=== PATIENT | female | born 1985 | race Caucasian/White ===

== ENCOUNTER 2016-11-15 09:34 | Emergency (ER) | payer OTHER ==
[2016-11-15 09:52] VITALS: RESP 18; O2SAT 100
[2016-11-15 10:31] LABS: RBC URINE 11 /hpf (0-3); URINE BACTERIA OCC (<OCC); URINE BILIRUBIN NEGATIVE (NEGATIVE); URINE BLOOD 2+ (NEGATIVE); URINE COLOR Yellow (YELLOW); URINE GLUCOSE (UA) NORMAL (Normal); URINE KETONE NEGATIVE (NEGATIVE); URINE LEUKOCYTE ESTERASE 1+ Leu/uL (Negative); URINE PROTEIN NEGATIVE (NEGATIVE); URINE UROBILINOGEN NORMAL mg/dL (0.2-1.0); WBC URINE 8 /hpf (0-5)
--- NOTE | 2016-11-15 10:31 | C.PDOC ---
History Of Present Illness The patient, a 30y/o female who is currently around 6 weeks , presents to the ED for evaluation of her . Patient states she was evaluated by her SURVEY INTERVIEWER, Dr. Harry, 2 days ago and underwent a repeat US which did not show evidence of a . Prior to that visit, patient underwent an US that showed a heartbeat. Patient states her doctor advised her to undergo a D& C procedure, but she presents to the ED for a second opinion. Patient denies fever, chills, abdominal pain, nausea, vomiting, or vaginal bleeding. Time Seen by Provider: 11/15/16 09:58 Chief Complaint (Nursing): Abdominal Pain History Per: Patient History/Exam Limitations: no limitations Current Symptoms Are (Timing): Still Present Radiation Of Pain To:: None Quality Of Discomfort: denies: "Pain" Associated Symptoms: denies: Fever, Chills, Nausea, Vomiting Additional History Per: Patient Abnormal Vaginal Bleeding: No Past Medical History Reviewed: Historical Data, Nursing Documentation, Vital Signs Vital Signs: Last Vital Signs Temp 98.6 F 11/15/16 11:54 Pulse 79 11/15/16 11:54 Resp 18 11/15/16 11:54 BP 115/72 11/15/16 11:54 Pulse Ox 100 11/15/16 12:22 - Medical History PMH: No Chronic Diseases Surgical History: No Surg Hx Family History: States: Unknown Family Hx - Social History Hx Alcohol Use: No Hx Substance Use: No - Immunization History Hx Tetanus Toxoid Vaccination: No Hx Influenza Vaccination: No Hx Pneumococcal Vaccination: No Review Of Systems Except As Marked, All Systems Reviewed And Found Negative. Constitutional: Negative for: Fever, Chills Gastrointestinal: Negative for: Nausea, Vomiting, Abdominal Pain Genitourinary: Positive for: Other (+evaluation of ). Negative for: Vaginal Bleeding Physical Exam - Physical Exam Appears: Non-toxic, No Acute Distress Skin: Normal Color, Warm, Dry Eye(s): bilateral: Normal Inspection, EOMI Nose: Normal Throat: Normal Neck: Supple Cardiovascular: Rhythm Regular Respiratory: Normal Breath Sounds Gastrointestinal/Abdominal: Soft, No Tenderness, No Guarding, No Rebound Back: Normal Inspection, No Vertebral Tenderness, No Paraspinal Tenderness Extremity: Normal ROM, Capillary Refill (less than 2 seconds) Neurological/Psych: Oriented x3, Normal Speech Gait: Steady ED Course And Treatment - Laboratory Results Result Diagrams: 11/15/16 10:43 11/15/16 10:43 Lab Interpretation: Normal Urine POC: Positive O2 Sat by Pulse Oximetry: 100 (on RA) Pulse Ox Interpretation: Normal - CT Scan/US Ultrasound Other Rad Studies (CT/US): Read By Radiologist, Radiology Report Reviewed CT/US Interpretation: Accession No. : [id number]. Patient Name / ID : CLAUDETTE GAFFNEY / [id number]. Exam Date : 11/15/2016 10:48:43 ( Approved ). Study Comment : Sex / Age : F / 30Y. Creator : Brenda Hollingsworth MD. Dictator : Brenda Hollingsworth MD. Word Processing Operator : Paperhanger : Brenda Hollingsworth MD. Approver2 : Report Date : 11/15/2016 11:54:43. My Comment : . Indication: Bleeding. Comparison: None available. Technique: Real-time transabdominal pelvic ultrasound was performed. In addition a transvaginal pelvic ultrasound was necessary to better depict pelvic anatomy. Findings: The uterus measures approximately 9.8 x 5.6 x 6.8 cm. Anteverted. Cervix length measures approximately 3.4 cm. There is a single intrauterine fetus present. The irregular-appearing gestational sac measures 3.2 cm and is compatible with a gestational age of 8 weeks 1 day. The crown-rump length measures 0.3 cm and is compatible with a gestational age of 6 weeks 0 days. There is heart motion is not detected. The right ovary measures 0.2 x 2.6 x 3.7 cm. 6.4 x 4.8 x 5.5 cm right ovarian cyst. The left ovary measures 3.1 x 1.8 x 2.6 cm. 1.6 x 1.2 x 1.5 cm left ovarian cyst. Blood flow was demonstrated to both ovaries. Small pelvic free fluid. Small fluid noted within the cervix. Impression: Single intrauterine with estimated gestational age 8 weeks 1 day by gestational sac calculation and 6 weeks 0 days by crown-rump length calculation. Gestational sac demonstrates irregular contour. heart rate was not detected during the study. Recommend WOOD GANG SAWYER consultation and close follow-up as indicated. Small pelvic free fluid. Small fluid noted within the cervix. 6.4 cm right ovarian cyst. 1.6 cm left ovarian cyst. Recommend 6 week follow-up ultrasound. Progress Note: labs and US ordered and reviewed. On re-evaluation abdomen soft non-tender. Patient was evaluated by her YARD MANAGER but wanted a second opinion Reassessment Condition: Unchanged Disposition Counseled Patient/Family Regarding: Studies Performed, Diagnosis, Need For Followup - Disposition Disposition: HOSPITALIZED Disposition Time: 12:30 Condition: STABLE Additional Instructions: Follow up with PMD and OB for further evaluation Return to ED if any increase symptoms Instructions: Threatened Miscarriage (ED) - POA Present On Arrival: None - Clinical Impression Clinical Impression: Miscarriage - PA / SPA ATTENDANT / Resident Statement MD/DO has reviewed & agrees with the documentation as recorded. - Scribe Statement The provider has reviewed the documentation as recorded by the Scribe (Violetta Gu) All medical record entries made by the Scribe were at my direction and personally dictated by me. I have reviewed the chart and agree that the record accurately reflects my personal performance of the history, physical exam, medical decision making, and the department course for this patient. I have also personally directed, reviewed, and agree with the discharge instructions and disposition.
[2016-11-15 10:50] LABS: BASO % 0.3 % (0.0-2.0); EOS % 0.5 % (0.0-4.0); HEMATOCRIT 37.3 % (34.0-47.0); LYMPH # 1.5 K/uL (1.0-4.3); MEAN CELL VOLUME 77.1 fL (81.0-99.0); MEAN CORPUSCULAR HEMOGLOBIN 24.7 pg (27.0-31.0); MEAN PLATELET VOLUME 8.8 fL (7.2-11.7); MONO # 0.5 K/uL (0.0-0.8); NRBC % 0.1 % (0.0-2.0); RED CELL DISTRIBUTION WIDTH 14.9 % (11.5-14.5); WHITE BLOOD COUNT 5.9 K/uL (4.8-10.8)
[2016-11-15 11:06] LABS: CHLORIDE 101 mmol/L (98-107)
[2016-11-15 11:07] LABS: SODIUM 135 mmol/L (132-148)
[2016-11-15 11:09] LABS: ALB/GLOB RATIO 1.1 (1.0-2.1); ALKALINE PHOSPHATASE 56 U/L (38-126); ALT/SGPT 87 U/L (9-52); AST/SGOT 40 U/L (14-36); BILIRUBIN,TOTAL 0.5 mg/dL (0.2-1.3); BLOOD UREA NITROGEN 11 mg/dL (7-17); CARBON DIOXIDE 23 mmol/L (22-30); GFR AFRICAN-AMERICAN > 60; GLUCOSE,RANDOM 89 mg/dL (65-105)
[2016-11-15 11:10] LABS: CALCIUM 8.5 mg/dl (8.6-10.4)
--- NOTE | 2016-11-15 11:56 | US ---
Indication: Bleeding Comparison: None available Technique: Real-time transabdominal pelvic ultrasound was performed. In addition a transvaginal pelvic ultrasound was necessary to better depict pelvic anatomy Findings: The uterus measures approximately 9.8 x 5.6 x 6.8 cm. Anteverted. Cervix length measures approximately 3.4 cm. There is a single intrauterine fetus present. The irregular-appearing gestational sac measures 3.2 cm and is compatible with a gestational age of 8 weeks 1 day. The crown-rump length measures 0.3 cm and is compatible with a gestational age of 6 weeks 0 days. There is heart motion is not detected. The right ovary measures 0.2 x 2.6 x 3.7 cm. 6.4 x 4.8 x 5.5 cm right ovarian cyst. The left ovary measures 3.1 x 1.8 x 2.6 cm. 1.6 x 1.2 x 1.5 cm left ovarian cyst. Blood flow was demonstrated to both ovaries. Small pelvic free fluid. Small fluid noted within the cervix. Impression: Single intrauterine with estimated gestational age 8 weeks 1 day by gestational sac calculation and 6 weeks 0 days by crown-rump length calculation. Gestational sac demonstrates irregular contour. heart rate was not detected during the study. Recommend BUSINESS REPORTER consultation and close follow-up as indicated. Small pelvic free fluid. Small fluid noted within the cervix. 6.4 cm right ovarian cyst. 1.6 cm left ovarian cyst. Recommend 6 week follow-up ultrasound.
[2016-11-15 11:59] VITALS: BP 115/72; PULSE 79; TEMP 98.6
== END 2016-11-15 12:25 | disposition short-term general hospital (02) ==
LOC: C.ER 09:34
DX: O03.9 Complete or unspecified spontaneous abortion without complication (principal)

== ENCOUNTER 2016-11-16 09:16 | Day surgery (SDC) | payer OTHER ==
--- NOTE | 2016-11-16 09:53 | C.PDOC ---
History Of Present Illness 30 y/o female complains of lower abdominal cramping and vaginal bleeding since this morning. Pt was seen in ED yesterday, told she was having a miscarriage. Pt has not followed up with OB. Denies fever, chills, or any other complaints. Time Seen by Provider: 11/16/16 09:39 Chief Complaint (Nursing): Female Genitourinary History Per: Patient History/Exam Limitations: no limitations Onset/Duration Of Symptoms: Hrs Current Symptoms Are (Timing): Still Present Severity: Mild Quality Of Discomfort: Cramping Associated Symptoms: denies: Fever, Chills Alleviating Factors: None Recent travel outside of the [place]: No Abnormal Vaginal Bleeding: Yes Past Medical History Reviewed: Historical Data, Nursing Documentation, Vital Signs Vital Signs: Last Vital Signs Temp 98.8 F 11/16/16 11:44 Pulse 95 H 11/16/16 11:44 Resp 16 11/16/16 11:44 BP 118/76 11/16/16 11:44 Pulse Ox 99 11/16/16 11:44 - Medical History PMH: No Chronic Diseases Surgical History: No Surg Hx Family History: States: Unknown Family Hx - Social History Hx Alcohol Use: No Hx Substance Use: No - Immunization History Hx Tetanus Toxoid Vaccination: No Hx Influenza Vaccination: No Hx Pneumococcal Vaccination: No Review Of Systems Except As Marked, All Systems Reviewed And Found Negative. Constitutional: Negative for: Fever, Chills Gastrointestinal: Positive for: Abdominal Pain Genitourinary: Positive for: Vaginal Bleeding Physical Exam - Physical Exam Appears: Non-toxic, No Acute Distress Skin: Warm, Dry, No Rash Head: Atraumatic, Normacephalic Eye(s): bilateral: Normal Inspection Neck: Normal ROM Chest: Symmetrical Cardiovascular: Rhythm Regular, No Murmur Respiratory: Normal Breath Sounds, No Rales, No Rhonchi, No Wheezing Gastrointestinal/Abdominal: Soft, Tenderness (mild suprapubic), No Guarding, No Rebound Extremity: Bilateral: Atraumatic, Normal Color And Temperature, Normal ROM Neurological/Psych: Oriented x3, Normal Speech ED Course And Treatment - Laboratory Results Result Diagrams: 11/16/16 11:12 11/16/16 11:12 Lab Interpretation: No Acute Changes O2 Sat by Pulse Oximetry: 99 (on room air) Pulse Ox Interpretation: Normal Medical Decision Making Medical Decision Making: OB to evaluate patient in ED. 1056: Dr Browne accepts patient onto service and to prep for OR for D&C Disposition Discussed With .: Richie Browne Comment: 10:00 Dr Browne she will come to ED to evaluate patient Doctor Will See Patient In The: ED - Disposition Disposition: HOSPITALIZED Disposition Time: 10:55 Condition: STABLE - POA Present On Arrival: None - Clinical Impression Clinical Impression: - PA / IMAGERY ANALYST / Resident Statement MD/DO has reviewed & agrees with the documentation as recorded. - Scribe Statement The provider has reviewed the documentation as recorded by the Scribe Cedrick Nance All medical record entries made by the Sam were at my direction and personally dictated by me. I have reviewed the chart and agree that the record accurately reflects my personal performance of the history, physical exam, medical decision making, and the department course for this patient. I have also personally directed, reviewed, and agree with the discharge instructions and disposition. Decision To Admit - Pt Status Changed To: Hospital Disposition Of: Observation - . Bed Request Type: Regular Admitting Physician: Richie Browne Patient Diagnosis:
[2016-11-16] MEDS ORDERED: Sodium Chloride 0.9% 1,000 ML IV ONE (10:54)
--- NOTE | 2016-11-16 11:03 | CP.PCM.HP ---
History of Present Illness - History of Present Illness History of Present Illness: 30 y/o with LMP 08/10/2016 , Presents to ed with c/o vaginal bleeding.patient was seen yesterday in er and diagnosed with missed .Patient wa advised o follow up with obgyn -dr limon but patient does not want to follow up with him.Patient states that when she was 6 weeks she had an ultrasound done which showed viable iup.Repeat scan done at 13 weeks showed missed aborton.Patient states that she was advised to have a D& C done but she came to er yesterday for another opinion.It was confirmed in the er yesterday that she has a missed .Patient came in today because she started bleeding. Present on Admission - Present on Admission Any Indicators Present on Admission: No Review of Systems - Review of Systems All systems: reviewed and no additional remarkable complaints except - Reproductive: Female Reproductive:Female: Amenorrhea, Abnormal Vaginal Bleeding Past Patient History - Infectious Disease Hx of Infectious Diseases: None - Past Social History Smoking Status: Never Smoked - CARDIAC Hx Cardiac Disorders: No - PULMONARY Hx Respiratory Disorders: No - NEUROLOGICAL Hx Neurological Disorder: No - HEENT Hx HEENT Problems: No - RENAL Hx Chronic Kidney Disease: No - ENDOCRINE/METABOLIC Hx Endocrine Disorders: No - HEMATOLOGICAL/ONCOLOGICAL Hx Blood Disorders: No - INTEGUMENTARY Hx Dermatological Problems: No - MUSCULOSKELETAL/RHEUMATOLOGICAL Hx Musculoskeletal Disorders: No - GASTROINTESTINAL Hx Gastrointestinal Disorders: No - GENITOURINARY/GYNECOLOGICAL Hx Reproductive Disorders: No Hx Sexually Transmitted Disorders: No - PSYCHIATRIC Hx Anxiety: No Hx Depression: No Hx Substance Use: No - SURGICAL HISTORY Hx Surgeries: No - ANESTHESIA Hx Anesthesia: No Meds Allergies/Adverse Reactions: Allergies Allergy/AdvReac Type Severity Reaction Status Date / Time No Known Allergies Allergy Verified 11/16/16 09:40 Physical Exam - Constitutional Appears: No Acute Distress - Respiratory Exam Respiratory Exam: NORMAL BREATHING PATTERN - Cardiovascular Exam Cardiovascular Exam: REGULAR RHYTHM - GI/Abdominal Exam GI & Abdominal Exam: Normal Bowel Sounds, Soft. absent: Guarding, Rebound, Tenderness - Exam External exam: NORMAL EXTERNAL EXAM Speculum exam: Vaginal Bleeding Bimanual exam: Uterine Enlargement - Extremities Exam Extremities exam: Negative for: calf tenderness - Back Exam Back exam: absent: CVA tenderness (L), CVA tenderness (R) - Neurological Exam Neurological exam: Alert, Oriented x3 - Psychiatric Exam Psychiatric exam: Normal Affect, Normal Mood - Skin Skin Exam: Normal Color Results - Vital Signs Recent Vital Signs: Last Vital Signs Temp 98.2 F 11/16/16 09:28 Pulse 102 H 11/16/16 09:28 Resp 17 11/16/16 09:28 BP 119/78 11/16/16 09:28 Pulse Ox 99 11/16/16 10:57 Assessment & Plan (1) Miscarriage Status: Acute - Assessment and Plan (Free Text) Assessment: Patient with miscarriage. 14 weeks gestation by lmp .crl 6 weeks gestation by ultrasound yesterday with no heart beat.Started bleeding today.Incomplete .Discussed management options with patient-medical versus surgical.Risks and benefits of each discussed.Patient chooses to have suction D& C Decision To Admit - Pt Status Changed To: Hospital Disposition Of: SDS- Endo,OR,Cath,IR - . Bed Request Type: Same Day Surgery
[2016-11-16] MEDS ORDERED: Sodium Chloride 0.9% 1,000 ML ONE (11:09)
[2016-11-16 11:17] LABS: BASO % 0.1 % (0.0-2.0); EOS % 0.3 % (0.0-4.0); HEMATOCRIT 39.7 % (34.0-47.0); LYMPH # 1.6 K/uL (1.0-4.3); LYMPH % 22.2 % (20.0-40.0); MEAN CELL VOLUME 77.1 fL (81.0-99.0); MEAN CORPUSCULAR HEMOGLOBIN 24.8 pg (27.0-31.0); MEAN CORPUSCULAR HGB CONC 32.1 g/dL (33.0-37.0); MONO # 0.5 K/uL (0.0-0.8); MONO % 6.8 % (0.0-10.0); WHITE BLOOD COUNT 7.3 K/uL (4.8-10.8)
[2016-11-16 11:22] LABS: INR 1.1
[2016-11-16 11:24] LABS: CHLORIDE 100 mmol/L (98-107)
[2016-11-16 11:25] LABS: POTASSIUM 4.1 mmol/L (3.6-5.2); SODIUM 136 mmol/L (132-148)
[2016-11-16 11:27] LABS: ALKALINE PHOSPHATASE 61 U/L (38-126); ALT/SGPT 82 U/L (9-52); AST/SGOT 44 U/L (14-36); BILIRUBIN,TOTAL 0.7 mg/dL (0.2-1.3); BLOOD UREA NITROGEN 12 mg/dL (7-17); CARBON DIOXIDE 24 mmol/L (22-30); GFR AFRICAN-AMERICAN > 60; GLUCOSE,RANDOM 85 mg/dL (65-105); TOTAL PROTEIN 7.8 g/dL (6.3-8.3)
[2016-11-16] MEDS ORDERED: Propofol 10 mg/ml Inj (20 ML) ONE ×2 (12:00→12:38)
[2016-11-16] MEDS ORDERED: Succinylcholine Chloride 20 mg/ml Syr (5 ml) IV ONE (12:01)
[2016-11-16] MEDS ORDERED: Midazolam 2 MG/2 ML VIAL ONE (12:01)
[2016-11-16] MEDS ORDERED: Lactated Ringer's 1,000 ML IV ONE ×3 (12:20→15:15)
[2016-11-16] MEDS ORDERED: HYDROmorphone 0.5 mg/0.5 ml ISec IVP PRN (13:13)
[2016-11-16] MEDS ORDERED: Oxycodone/Acetaminophen 5/325 mg Tab PO PRN (13:14)
--- NOTE | 2016-11-16 13:17 | PCM.SURG1 ---
Surgeon's Initial Post Op Note - Surgeon's Notes Surgeon: Richie Browne Ball Mill Mixer: none Type of Anesthesia: General Endo Anesthesia Administered By: DR Khoury Pre-Operative Diagnosis: Incomplete Operative Findings: 8 week size anteverted uterus; moderate amount of products of conception Post-Operative Diagnosis: same as preop diagnosis Operation Performed: Suction D&C Specimen/Specimens Removed: PRODUCTS OF CONCEPTION Estimated Blood Loss: EBL {In ML}: 50 Blood Products Given: N/A Drains Used: No Drains Date of Surgery/Procedure: 11/16/16 Time of Surgery/Procedure: 12:35 (surgery start time)
[2016-11-16 13:48] VITALS: O2SAT 100
[2016-11-16 15:48] VITALS: BP 117/63; TEMP 97.6
[2016-11-16 16:28] VITALS: PULSE 82; RESP 15
--- NOTE | 2016-11-16 21:09 | OP ---
PROCEDURE DATE: 11/16/2016 PREOPERATIVE DIAGNOSIS: Incomplete . POSTOPERATIVE DIAGNOSIS: Incomplete . PROCEDURE PERFORMED: Suction dilation and curettage. ANESTHESIA: General endotracheal. ANESTHESIOLOGIST: Dr. Khoury. COMPLICATIONS: None. ESTIMATED BLOOD LOSS: 50 mL. FINDINGS: On exam under anesthesia, approximately 8-week size anteverted uterus with moderate amount of products of conception obtained on suction D and C. SPECIMENS: Products of conception. PROCEDURE IN DETAIL: After informed consent was obtained, the patient was taken to the operating ricardo m and placed in dorsal supine position. General anesthesia was then induced and the patient was intu bated without any difficulty. She was thereafter placed in dorsal lithotomy position. An exam under anesthesia was performed which revealed approximately 8-week size anteverted uterus and the cervix a t this point was found to be 1 cm dilated. A sterile speculum was then placed in the vagina after th e patient was prepped and draped in the usual sterile manner and the catheter was straight cathed. T he anterior lip of the cervix was grasped with a single tooth tenaculum. The cervix was then gradual ly dilated until a size 7-Colombian curved suction ____ could be placed into the patient's uterus. The suction tip was thereafter hooked up to the suction and the products of conception were suctioned out . Sharp curettage was thereafter performed until a gritty sensation was felt. Thereafter, another p ass of the suction was performed and clear and frothy blood was noted in the suction tubing. This wa s removed. The tenaculum was then removed from the anterior lip of the cervix and the tenaculum site s were needed to be hemostatic. The speculum was then removed from the patient's vagina. The patien t was thereafter taken out of dorsal lithotomy position, extubated and taken to the recovery room in stable condition. The specimens were sent to pathology. The patient tolerated the procedure well. Richie Bronwe MD cc: [id number] TT: 11/16/2016 21:08:50 sn
== END 2016-11-16 16:15 | disposition home or self-care (01) ==
LOC: C.ER 09:16 → C.SDS 10:55
PROVIDERS: ATTEND Student in an Organized Health Care Education/Training Program
DX: O03.4 Incomplete spontaneous abortion without complication (principal)